=== PATIENT | female | born 1970 | race Caucasian/White ===

== ENCOUNTER → 2020-11-30 | Outpatient (CLI) | payer BC ==
[~2020-11-30] MED LIST: ACETAMINOPHEN-1 EAC1 PO; COZAAR 25MG TAB25 MG PO; CRESTOR20 MG PO; CYCLOBENZAPRINE5 MG PO; EPIPEN 2-P0.3 MG/0.3 INJ; INVEGA6 MG PO; LAMICTAL200 MG PO; LEVOFLOXACIN500 MG PO; METFORMIN HCL750 MG PO; METOPROLOL TART25 MG PO; NEURONTIN600 MG PO; PEPCID20 MG PO; PREDNISONE20 MG PO; PROTONIX40 MG PO; ROPINIROLE HCL2 M1 PO; TRULICITY0.75 MG/0. SQ; VISTARIL25 MG PO
[2020-11-30 10:28] LABS: HEMOGLOBIN 15.2 gm/dl (12.3-15.3); RED BLOOD COUNT 4.8 M/UL (4.00-5.10); WHITE BLOOD COUNT 10.3 K/UL (4.5-11.0)
[2020-11-30 11:16] LABS: BUN/CREATININE RATIO 28 (0-10)
== END ==
LOC: LAB 10:00
PROVIDERS: Internal Medicine Cardiovascular Disease
DX: R00.2 Palpitations (principal); R55 Syncope and collapse; I47.1 Supraventricular tachycardia
CPT/HCPCS: 36415; 71046; 80048; 85025

== ENCOUNTER → 2020-12-02 | Outpatient (CLI) | payer BC ==
[~2020-12-02] VITALS: Ht 152.4 cm; Wt 68.9 kg
== END ==
LOC: CATH 08:31
PROC: 0JH632Z Insertion of Monitoring Device into Chest Subcutaneous Tissue and Fascia, Percutaneous Approach (ICD-10-PCS; principal; 2020-12-02)
PROC: 4A12X4Z Monitoring of Cardiac Electrical Activity, External Approach (ICD-10-PCS; 2020-12-02)
PROC: 4A12XFZ Monitoring of Cardiac Rhythm, External Approach (ICD-10-PCS; 2020-12-02)
PROC: 4A1 Measurement and Monitoring, Physiological Systems, Monitoring (ICD-10-PCS; 2020-12-02)
DX: R55 Syncope and collapse (principal); I45.89 Other specified conduction disorders; I44.7 Left bundle-branch block, unspecified; I10 Essential (primary) hypertension; F17.200 Nicotine dependence, unspecified, uncomplicated; E11.9 Type 2 diabetes mellitus without complications; Z79.84 Long term (current) use of oral hypoglycemic drugs; Z82.49 Family history of ischemic heart disease and other diseases of the circulatory system; Z79.899 Other long term (current) drug therapy
CPT/HCPCS: 93620; 93621; 93623; 99152; 99153; C1730; C1764; C1766; J1644; J2250; J3010; J3370; J7040; J7050

== ENCOUNTER 2021-08-04 22:14 | Emergency (ER) | payer BC ==
[2021-08-04 22:59] LABS: HEMOGLOBIN 14.2 gm/dl (12.3-15.3); RED BLOOD COUNT 4.69 M/UL (4.00-5.10); WHITE BLOOD COUNT 12.2 K/UL (4.5-11.0)
[2021-08-04 23:19] LABS: BUN/CREATININE RATIO 25 (0-10)
[2021-08-05] MEDS ORDERED: PROAIR HFA8.5 GM INH (06:00)
[2021-08-05] MEDS ORDERED: AUGMENTIN 875-1 EACH PO (06:00)
[2021-08-05] MEDS ORDERED: DOXYCYCLINE HY100 M2 PO (06:00)
== END 2021-08-05 06:46 | disposition home or self-care (01) ==
LOC: ER1 22:14
PROVIDERS: Physician Assistant Medical
DX: U07.1 COVID-19 (principal); J12.82 Pneumonia due to coronavirus disease 2019; M48.07 Spinal stenosis, lumbosacral region; E11.9 Type 2 diabetes mellitus without complications; I10 Essential (primary) hypertension; Z90.710 Acquired absence of both cervix and uterus; F17.200 Nicotine dependence, unspecified, uncomplicated
CPT/HCPCS: 71045; 80053; 81001; 83690; 85025; 99285; J7030; Q9967